=== PATIENT | female | born 1990 | race Caucasian/White ===

== ENCOUNTER 2025-02-21 08:15 | Day surgery (SDC) | payer MEDICAID ==
[~2025-02-21] VITALS: Ht 167.6 cm; Wt 88.8 kg
[~2025-02-21 08:15] MED LIST: simethicone 40mg/0.6ml oral drops 15ml ONE
[2025-02-21 09:45] VITALS: RESP 16
[2025-02-21] MEDS ORDERED: FLUT9.9S BOTHNARES (10:34)
[2025-02-21] MEDS ORDERED: METO-384 PO (10:34)
[2025-02-21] MEDS ORDERED: ALBU8HFA INH (10:35)
[2025-02-21] MEDS ORDERED: CETI10CA PO (10:35)
[2025-02-21] MEDS ORDERED: LIDOcaine 2% Viscous 15ml cup ONE (10:37)
[2025-02-21] MEDS ORDERED: MIDAZolam 1 MG/ML 5ML VIAL ONE (11:12)
[2025-02-21] MEDS ORDERED: fentaNYL/PF 50MCG/1 ML 2ML syringe ONE (11:12)
[2025-02-21 11:30] VITALS: BP 106/70; PULSE 60; RESP 18; O2SAT 96
[2025-02-21 11:40] VITALS: BP 115/62; PULSE 59; RESP 16; O2SAT 96
[2025-02-21 11:50] VITALS: BP 107/70; PULSE 60; RESP 20; O2SAT 95
[2025-02-21 12:00] VITALS: BP 105/61; PULSE 68; RESP 20; O2SAT 94
[2025-02-21 12:10] VITALS: BP_SYST 113; BP_SYST 115; BP_DIAS 71; BP_DIAS 74; PULSE 61; RESP 14; RESP 21; O2SAT 95; O2SAT 98
== END 2025-02-21 12:10 | disposition home or self-care (01) ==
LOC: OR 08:15 → EDBD 10:00 → OR 12:10
PROVIDERS: ATTEND Internal Medicine Gastroenterology
DX: R10.13 Epigastric pain (principal); K29.50 Unspecified chronic gastritis without bleeding; K21.00 Gastro-esophageal reflux disease with esophagitis, without bleeding; R68.81 Early satiety; Z98.890 Other specified postprocedural states
CPT/HCPCS: 43239; J2250; J3010; J7120; Z7512; 99152; A4620